=== PATIENT | female | born 1965 | race Two or more races ===

== ENCOUNTER 2020-07-16 12:28 | Emergency (ER) | payer OTHER ==
[~2020-07-16] VITALS: Ht 157.5 cm; Wt 103.4 kg
[~2020-07-16 12:28] MED LIST: ADVAIR 5001 DISK W/1 IH; CYMBALTA60 MG; GLIPIZIDE10 MG PO; LYRICA150 MG; METFORMIN HCL1000 MG PO; NABUMETONE500 MG PO; NORVASC5 MG PO; PERCOCET 5/3251 TAB PO; SINGULAIR 5MG5 MG PO
[2020-07-16] MEDS ORDERED: SOLIQUA 100 UNIT3 ML (12:48)
[2020-07-16] MEDS ORDERED: AVAPRO150 MG (12:50)
== END 2020-07-16 18:19 | disposition home or self-care (01) ==
LOC: ER 12:28
DX: S82.62XA Displaced fracture of lateral malleolus of left fibula, initial encounter for closed fracture (principal); S80.02XA Contusion of left knee, initial encounter; W18.39XA Other fall on same level, initial encounter; Y93.89 Activity, other specified; Y92.63 Factory as the place of occurrence of the external cause; Y99.8 Other external cause status; Z96.652 Presence of left artificial knee joint

== ENCOUNTER 2021-06-16 04:45 | Day surgery (SDC) | payer OTHER ==
[~2021-06-16 04:45] MED LIST changes: +AVAPRO150 MG; +LEXAPRO20 MG PO; +LIPITOR40 MG PO; +RESTORIL PO; +SOLIQUA; +SOLIQUA 100 UNIT3 ML
== END 2021-06-16 09:40 | disposition home or self-care (01) ==
LOC: CIR.AMB 04:45
PROVIDERS: ATTEND Surgery
DX: T82.898A Other specified complication of vascular prosthetic devices, implants and grafts, initial encounter (principal); Z20.822 Contact with and (suspected) exposure to COVID-19

== ENCOUNTER 2021-08-09 16:43 | Emergency (ER) | payer OTHER ==
[~2021-08-09] VITALS: Ht 157.5 cm; Wt 98.0 kg
[2021-08-09] MEDS ORDERED: INTESTINEX680 M1 PO (23:01)
[2021-08-09] MEDS ORDERED: KETO10TA2 PO (23:01)
[2021-08-09] MEDS ORDERED: PROTONIX40 MG PO (23:01)
== END 2021-08-10 00:15 | disposition home or self-care (01) ==
LOC: ER 16:43
DX: K52.9 Noninfective gastroenteritis and colitis, unspecified (principal)

== ENCOUNTER 2021-09-08 08:52 | Outpatient (CLI) | payer OTHER ==
[~2021-09-08 08:52] MED LIST changes: +INTESTINEX680 M1 PO; +KETO10TA2 PO; +PROTONIX40 MG PO
== END 2021-09-08 09:01 | disposition home or self-care (01) ==
LOC: RX STUDY 08:52
PROVIDERS: ATTEND Otolaryngology Plastic Surgery within the Head & Neck
DX: K44.9 Diaphragmatic hernia without obstruction or gangrene (principal); R13.19 Other dysphagia

== ENCOUNTER 2022-02-11 17:45 | Inpatient (IN) | payer OTHER ==
[~2022-02-11] VITALS: Ht 157.5 cm; Wt 99.8 kg
[2022-02-11] MEDS ORDERED: PRILOSEC10 MG (19:05)
[2022-02-11] MEDS ORDERED: AMBIEN5 MG (19:05)
[2022-02-13] MEDS ORDERED: GLIMEPIRIDE2 M1 (09:58)
[2022-02-13] MEDS ORDERED: SOLIQUA 100 UNIT3 ML (09:58)
[2022-02-13] MEDS ORDERED: DICLOFENAC SOD100 GM (09:59)
[2022-02-13] MEDS ORDERED: DESVENLAFAXINE50 M3 (09:59)
[2022-02-13] MEDS ORDERED: LORATADINE10 MG (09:59)
[2022-02-13] MEDS ORDERED: SYNJARDY XR 101 EACH (09:59)
[2022-02-13] MEDS ORDERED: MAXIMUM D3325 MCG (09:59)
[2022-02-13] MEDS ORDERED: WIXELA 500-501 EACH (10:00)
[2022-02-13] MEDS ORDERED: BANOPHEN50 MG (10:00)
[2022-02-13] MEDS ORDERED: PROCTOSOL-HC28.35 GM (10:00)
[2022-02-15] MEDS ORDERED: ULTRACET PO (08:55)
[2022-02-15] MEDS ORDERED: RECTICARE30 GM TOP (08:56)
== END 2022-02-15 23:28 | disposition home or self-care (01) | DRG 348 ==
LOC: ER 17:45 → SURG 02-12 18:40
PROVIDERS: Surgery; ADMIT Internal Medicine; ATTEND Internal Medicine
PROC: 30233N1 Transfusion of Nonautologous Red Blood Cells into Peripheral Vein, Percutaneous Approach (ICD-10-PCS; 2022-02-12)
PROC: B246ZZZ Ultrasonography of Right and Left Heart (ICD-10-PCS; 2022-02-12)
PROC: 06LY0CC Occlusion of Hemorrhoidal Plexus with Extraluminal Device, Open Approach (ICD-10-PCS; 2022-02-13)
PROC: 3E0T3BZ Introduction of Anesthetic Agent into Peripheral Nerves and Plexi, Percutaneous Approach (ICD-10-PCS; 2022-02-13)
PROC: 05HB33Z Insertion of Infusion Device into Right Basilic Vein, Percutaneous Approach (ICD-10-PCS; 2022-02-13)
PROC: 06BY0ZC Excision of Hemorrhoidal Plexus, Open Approach (ICD-10-PCS; principal; 2022-02-13 16:00)
DX: K64.8 Other hemorrhoids (principal); K62.5 Hemorrhage of anus and rectum; K64.4 Residual hemorrhoidal skin tags; D50.0 Iron deficiency anemia secondary to blood loss (chronic); Z20.822 Contact with and (suspected) exposure to COVID-19; E11.65 Type 2 diabetes mellitus with hyperglycemia; Z89.512 Acquired absence of left leg below knee

== ENCOUNTER 2025-01-20 16:30 | Emergency (ER) | payer OTHER ==
[~2025-01-20] VITALS: Ht 157.5 cm; Wt 99.8 kg
[~2025-01-20 16:30] MED LIST changes: +AMBIEN5 MG; +BANOPHEN50 MG; +DESVENLAFAXINE50 M3; +DICLOFENAC SOD100 GM; +GLIMEPIRIDE2 M1; +LORATADINE10 MG; +MAXIMUM D3325 MCG; +PRILOSEC10 MG; +PROCTOSOL-HC28.35 GM; +RECTICARE30 GM TOP; +SYNJARDY XR 101 EACH; +ULTRACET PO; +WIXELA 500-501 EACH
[2025-01-20] MEDS ORDERED: LANTUS SOL100 UNIT/1 SUBCUTANEO (16:45)
[2025-01-20 19:44] LABS: HEMATOCRIT 34.8 % (36.0-45.00); HEMOGLOBIN 10.9 g/dL (12.0-15.00); MEAN CELL VOLUME 79.2 fL (80.00-100.00); MEAN CORPUSCULAR HEMOGLOBIN 24.8 pg (27.00-32.0); MEAN CORPUSCULAR HGB CONC 31.3 g/dl (32.0-36.0); PLATELET COUNT 313 K/uL (150-450); RED CELL DISTRIBUTION WIDTH 16.6 % (11.5-14.5)
[2025-01-20 20:03] LABS: CALCIUM 9.1 mg/dL (8.5-10.1); CREATININE SERUM 1.39 mg/dL (0.55-1.02); GFR 38.54; POTASSIUM 4.1 mEq/L (3.5-5.1)
== END 2025-01-20 20:49 | disposition home or self-care (01) ==
LOC: ER 16:33
PROVIDERS: General Practice
DX: M25.512 Pain in left shoulder (principal); Z88.8 Allergy status to other drugs, medicaments and biological substances